=== PATIENT | male | born 1985 | race Hispanic/Latino ===

== ENCOUNTER 2017-09-06 01:10 | Emergency (ER) | payer OTHER ==
[2017-09-06 01:24] VITALS: BP 140/64; PULSE 48; TEMP 98.2; O2SAT 99
[2017-09-06 02:37] VITALS: RESP 16
--- NOTE | 2017-09-06 02:50 | ED PDOC ---
HPI: General Adult Time Seen by Provider: 09/06/17 01:45 Chief Complaint (Nursing): Chest Pain Chief Complaint (Provider): arm numbness History Per: Patient History/Exam Limitations: no limitations Onset/Duration Of Symptoms: Days Other Location:: L arm, chest Current Symptoms Are (Timing): Better Pain Scale Rating Of: 0 Quality: warmth in chest area Recently: Treated By A Physician (saw press assistant and PMD) Additional Complaint(s): Salvatore Mendoza is a 32 yo M with PMH Factor V Leiden mutation, who presented to ED today 09/06/17 with complaint of left arm parasthesias, warmth in chest, and bradycardia. He is currently training for a marathon, is an avid runner/ athlete. Pt was seen by PMD at [facility] one week ago- had EKG outpt that showed HR of 55; he was sent to press assistant for further eval; states that in press assistant office his HR was 38, and he was sent for outpt stress test and echo, was told he can continue exercising in the meantime. States her was told at press assistant's office that low HR is normal for a young athlete. Has been taking aspirin daily on and off since finding out he has Factor V Leiden a few years ago, has been taking it consistently for the past week at instruction of press assistant. Came to ED today because he felt combination of symptoms, including feeling his L arm fall asleep, a "warm" sensation in his chest, and worry about his low HR. Denies loss of coordination, loss of strength, dizziness, lightheadedness, issues walking, issues speaking, loss of sensation. Past Medical History Vital Signs: Last Vital Signs Temp 98.2 F 09/06/17 01:19 Pulse 48 L 09/06/17 01:19 Resp 16 09/06/17 01:19 BP 140/64 09/06/17 01:19 Pulse Ox 99 09/06/17 01:19 - Medical History Other PMH: Factor V Leiden - Surgical History Other surgeries: adenoid removal age 10. wisdom teeth age 16 - Family History Family History: States: Unknown Family Hx - Living Arrangements Living Arrangements: With Family - Social History Alcohol: Occasional Drugs: Denies - Allergies Allergies/Adverse Reactions: Allergies Allergy/AdvReac Type Severity Reaction Status Date / Time ancestim Allergy ANAPHYLAXIS Verified 09/06/17 01:18 Review of Systems Constitutional: Negative for: Fever, Chills ENT: Negative for: Nose Discharge Cardiovascular: Positive for: Other ("warm" sensation in chest). Negative for: Chest Pain, Palpitations Respiratory: Negative for: Cough, SOB with Exertion Gastrointestinal: Negative for: Nausea, Vomiting, Abdominal Pain, Diarrhea Genitourinary Male: Negative for: Dysuria, Frequency Neurological: Positive for: Numbness (parasthesias in L arm prior to ED visit). Negative for: Weakness, Dizziness Physical Exam - Reviewed Vital Signs Reviewed: Yes - Physical Exam Appears: Positive for: No Acute Distress Head Exam: Positive for: NORMAL INSPECTION Skin: Positive for: Normal Color, Warm, Dry Eye Exam: Positive for: Normal appearance, EOMI, PERRL ENT: Positive for: Normal ENT Inspection. Negative for: Nasal Congestion, Pharyngeal Erythema Neck: Positive for: Normal, Painless ROM, Supple Cardiovascular/Chest: Positive for: Chest Non Tender, Bradycardia. Negative for : Edema, Murmur Respiratory: Positive for: Normal Breath Sounds. Negative for: Accessory Muscle Use, Wheezing, Respiratory Distress Pulses-Radial (L): 2+ Pulses-Radial (R): 2+ Gastrointestinal/Abdominal: Positive for: Normal Exam, Bowel Sounds, Soft. Negative for: Tenderness, Distended Back: Positive for: Normal Inspection. Negative for: Vertebral Tenderness Extremity: Positive for: Normal ROM. Negative for: Tenderness, Pedal Edema, Calf Tenderness, Capillary Refill, Deformity, Swelling Lymphatic: Positive for: Other (no cervical lymphadenopathy) Neurologic/Psych: Positive for: Alert, hydrology technician II-XII (intact to individual testing) , Oriented, Gait (normal), Other (neurologically intact, 5/5 strength in all 4 extremities, no neuro deficits noted on exam). Negative for: Motor/Sensory Deficits, Aphasia, Facial Droop - ECG O2 Sat by Pulse Oximetry: 99 Medical Decision Making Medical Decision Making: Pt assessed; HR observed on monitor to be between 48-60. Pt is asymptomatic - no neuro deficits, no differences in sensation bilaterally ; parasthesias resolved. Head CT offered, benefits explained to pt; pt declined, prefers to follow up with PMD. Pt discussed with Dr. Ruth. Disposition - Clinical Impression Clinical Impression: Bradycardia, Paresthesia - Patient ED Disposition Is Patient to be Admitted: No - Disposition Disposition: Routine/Home Disposition Time: 02:50 Condition: STABLE Additional Instructions: Follow up with your PMD in 1 week Instructions: Paresthesia (ED) Forms: better. Connect (Spanish)
--- NOTE | 2017-09-07 12:54 | CARD ---
APPROVED REPORT EKG Measurement Heart [id number] <Conclusion> Sinus bradycardia with sinus arrhythmia Otherwise normal ECG
== END 2017-09-06 02:35 | disposition home or self-care (01) ==
LOC: H.ER 01:10
DX: R00.1 Bradycardia, unspecified (principal); R20.0 Anesthesia of skin; Z79.82 Long term (current) use of aspirin